=== PATIENT | male | born 1955 | race Two or more races ===

== ENCOUNTER 2016-10-30 16:36 | Inpatient (IN) | payer OTHER ==
[~2016-10-30] VITALS: Ht 177.8 cm; Wt 97.3 kg
[~2016-10-30 16:36] MED LIST: ATO40T PO; INSUINJ2 SC; LISI-275 PO; TERA1CAP33 PO
[2016-10-30] MEDS ORDERED: SODIUM CHLORIDE 0.9% 1,000 ML IVB ONE (18:18)
[2016-10-30] MEDS ORDERED: ONDANSETRON HCL 4 MG/2 ML VIAL IV ONE (18:30)
[2016-10-30 18:32] LABS: Basophils # (auto) 0 uL; Basophils % (auto) 0.3 % (0.0-2.0); Eosinophils # (auto) 0 uL; Hematocrit 40.8 % (41.0-53.0); Hemoglobin 13.5 g/dL (13.5-17.5); Lymphocytes # (auto) 0.9 uL; Lymphocytes % (auto) 6.2 % (10.0-50.0); Mean Corpuscular Hemoglobin 27.6 pg (28.0-32.0); Mean Corpuscular Hgb Conc. 33.1 g/dL (32.0-36.0); Mean Corpuscular Volume 83.4 fL (80.0-100.0); Mean Platelet Volume 10.7 fL (7.4-10.4); Monocytes # (auto) 0.6 uL; Monocytes % (auto) 4.1 % (0.0-12.0); Neutrophils # (auto) 12.8 uL; Neutrophils % (auto) 89.4 % (37.0-80.0); Platelet Count (auto) 305 10^3/uL (140-450); Red Cell Distribution Width 13.3 % (11.6-16.0); White Blood Cell 14.3 10^3/uL (4.4-10.8)
[2016-10-30 18:49] LABS: INR 1.04 (0.9-1.15); Partial Thromboplastin Time 26.2 sec (22.64-33.71); Prothrombin Time 10.7 sec (9.37-12.3)
[2016-10-30 18:53] LABS: Albumin 3.5 g/dL (3.4-5.0); BUN/Creatinine Ratio 14.1; Calcium 9.1 mg/dL (8.5-10.1); Magnesium 2.5 mg/dL (1.6-2.6); Potassium 5.1 mmol/L (3.5-5.1)
[2016-10-30 18:57] LABS: Bilirubin, Total 0.6 mg/dL (0.2-1.0); Total Protein 8.4 g/dL (6.4-8.2)
[2016-10-30] MEDS ORDERED: InsuLIN R (HUMAN) 100 UNITS in SODIUM CHL 0.9% 99 ML IV SCH (20:04)
[2016-10-30] MEDS ORDERED: DEXTROSE (50%) 50ML SYRG IV PRN (20:15)
[2016-10-30] MEDS ORDERED: SODIUM CHLORIDE 0.9% 1,000 ML IV ONE (20:15)
[2016-10-30] MEDS: ACCU-CHEK COMFORT CURVE STRIP VI SCH ×3 (21:15→23:22)
[2016-10-30] MEDS: InsuLIN R (HUMAN) 100 UNITS in SODIUM CHL 0.9% 99 ML IV SCH (21:20)
[2016-10-30] MEDS: SODIUM CHLORIDE 0.9% 1,000 ML IV SCH (21:55)
[2016-10-30] MEDS ORDERED: cefTRIAXone 1GM/50ML D5W 50 ML IV ONE (22:00)
[2016-10-30] MEDS ORDERED: MORPHINE SULFATE 4 MG/ML SYRG IV PRN (22:00)
[2016-10-30] MEDS ORDERED: NITROGLYCERIN 0.4 MG SL TAB SL PRN (22:00)
[2016-10-30] MEDS ORDERED: LACTULOSE 20Gm/30ML SOLN PO PRN (22:00)
[2016-10-31] VITALS (47 sets, daily range): BP systolic 109–180; BP diastolic 63–107
[2016-10-31] MEDS: ACCU-CHEK COMFORT CURVE STRIP VI SCH ×24 (00:43→23:02)
[2016-10-31] MEDS: ATORVASTATIN 20 MG TAB PO SCH ×2 (00:44→22:06)
[2016-10-31] MEDS: TERAZOSIN HCL 1 MG CAP PO SCH ×2 (00:44→22:06)
[2016-10-31] MEDS: ENOXAPARIN SOD 30 MG/0.3 ML SYRINGE SC SCH ×2 (00:45→19:34)
[2016-10-31] MEDS: ONDANSETRON HCL 4 MG/2 ML VIAL IV PRN ×2 (01:40→10:17)
[2016-10-31] MEDS: MORPHINE SULF INJ 2 MG/ML SYRINGE 1ML IV PRN ×2 (01:45→10:17)
[2016-10-31] MEDS ORDERED: SODIUM CHLORIDE 0.9% 1,000 ML IV SCH (02:04)
[2016-10-31] MEDS: SODIUM CHLORIDE 0.9% 1,000 ML IV SCH ×4 (03:00→17:55)
[2016-10-31 03:54] LABS: Basophils # (auto) 0 uL; Basophils % (auto) 0.3 % (0.0-2.0); Eosinophils # (auto) 0 uL; Eosinophils % (auto) 0.2 % (0.0-7.0); Hematocrit 38.8 % (41.0-53.0); Hemoglobin 12.9 g/dL (13.5-17.5); Lymphocytes # (auto) 1.4 uL; Lymphocytes % (auto) 10.4 % (10.0-50.0); Mean Corpuscular Hemoglobin 27.3 pg (28.0-32.0); Mean Corpuscular Hgb Conc. 33.4 g/dL (32.0-36.0); Mean Corpuscular Volume 81.8 fL (80.0-100.0); Mean Platelet Volume 10.2 fL (7.4-10.4); Monocytes # (auto) 0.9 uL; Monocytes % (auto) 6.7 % (0.0-12.0); Neutrophils % (auto) 82.4 % (37.0-80.0); Platelet Count (auto) 315 10^3/uL (140-450); Red Cell Distribution Width 12.7 % (11.6-16.0); White Blood Cell 13.3 10^3/uL (4.4-10.8)
[2016-10-31 04:14] LABS: Albumin 3.3 g/dL (3.4-5.0); BUN/Creatinine Ratio 15.7; Bilirubin, Total 0.3 mg/dL (0.2-1.0); Potassium 3.7 mmol/L (3.5-5.1); Total Protein 7.7 g/dL (6.4-8.2)
[2016-10-31 08:53] LABS: Urine Bilirubin Negative (Negative); Urine Blood TRACE /uL (Negative); Urine Color Yellow (Yellow); Urine Ketone Negative (Negative); Urine Nitrite Negative (Negative); Urine RBC 4 /hpf (0 - 3); Urine Squamous Epithelial Cell FEW /hpf (<5); Urine Urobilinogen Normal (Negative); Urine pH 5.5 (5.0-8.0)
[2016-10-31 08:54] LABS: Urine Glucose 4+ mg/dL (Normal)
[2016-10-31] MEDS: cefTRIAXone 1GM/50ML D5W 50 ML IV SCH (08:59)
[2016-10-31] MEDS: InsuLIN R (HUMAN) 100 UNITS in SODIUM CHL 0.9% 99 ML IV SCH (09:08)
[2016-10-31] MEDS ORDERED: LISINOPRIL 5 MG TAB PO SCH (10:00)
[2016-10-31] MEDS: PANTOPRAZOLE SODIUM 40 MG/10 ML VIAL IV SCH (10:10)
[2016-10-31 14:12] LABS: BUN/Creatinine Ratio 14.3; Calcium 8.2 mg/dL (8.5-10.1); Potassium 3.8 mmol/L (3.5-5.1)
[2016-10-31 18:10] LABS: BUN/Creatinine Ratio 14.4; Potassium 3.9 mmol/L (3.5-5.1)
[2016-10-31] MEDS ORDERED: hydrALAZINE HCL 20 MG/ML VL IV PRN (19:00)
[2016-11-01] VITALS (18 sets, daily range): BP systolic 120–178; BP diastolic 59–119
[2016-11-01] MEDS: ACCU-CHEK COMFORT CURVE STRIP VI SCH ×11 (00:06→20:19)
[2016-11-01] MEDS: SODIUM CHLORIDE 0.9% 1,000 ML IV SCH ×4 (00:53→22:11)
[2016-11-01 03:50] LABS: Basophils # (auto) 0 uL; Basophils % (auto) 0.4 % (0.0-2.0); Eosinophils # (auto) 0.1 uL; Eosinophils % (auto) 0.8 % (0.0-7.0); Hematocrit 31.1 % (41.0-53.0); Hemoglobin 10.4 g/dL (13.5-17.5); Lymphocytes # (auto) 1.4 uL; Lymphocytes % (auto) 17.3 % (10.0-50.0); Mean Corpuscular Hemoglobin 27.5 pg (28.0-32.0); Mean Corpuscular Hgb Conc. 33.3 g/dL (32.0-36.0); Mean Corpuscular Volume 82.6 fL (80.0-100.0); Mean Platelet Volume 9.9 fL (7.4-10.4); Monocytes # (auto) 0.5 uL; Monocytes % (auto) 6.9 % (0.0-12.0); Neutrophils # (auto) 5.8 uL; Neutrophils % (auto) 74.6 % (37.0-80.0); Platelet Count (auto) 215 10^3/uL (140-450); Red Cell Distribution Width 13.1 % (11.6-16.0); White Blood Cell 7.8 10^3/uL (4.4-10.8)
[2016-11-01 04:12] LABS: BUN/Creatinine Ratio 15.7; Calcium 8.3 mg/dL (8.5-10.1); Magnesium 2.1 mg/dL (1.6-2.6); Phosphorus 4.5 mg/dL (2.6-4.90); Uric Acid 7.7 mg/dL (3.5-7.2)
[2016-11-01] MEDS ORDERED: DEXTROSE (50%) 50ML SYRG IV PRN ×2 (06:45→18:30)
[2016-11-01] MEDS: InsuLIN REG 1unit/0.01ml Soln (100units/ml) SC SCH ×4 (07:00→20:22)
[2016-11-01] MEDS: cefTRIAXone 1GM/50ML D5W 50 ML IV SCH (08:58)
[2016-11-01] MEDS: PANTOPRAZOLE SODIUM 40 MG/10 ML VIAL IV SCH (09:24)
[2016-11-01] MEDS ORDERED: FLUCONAZOLE 100 MG TAB PO ONE (12:45)
[2016-11-01] MEDS: ENOXAPARIN SOD 30 MG/0.3 ML SYRINGE SC SCH (19:54)
[2016-11-01] MEDS ORDERED: InsuLIN REG 1unit/0.01ml Soln (100units/ml) SC SCH (22:00)
[2016-11-01] MEDS: TERAZOSIN HCL 1 MG CAP PO SCH (22:10)
[2016-11-01] MEDS: ATORVASTATIN 20 MG TAB PO SCH (22:10)
[2016-11-01] MEDS: INSULIN DETEMIR(LEVEMIR) 1unit/0.01ml Soln (100units/ml) SC SCH (22:42)
[2016-11-02] MEDS: InsuLIN REG 1unit/0.01ml Soln (100units/ml) SC SCH ×5 (00:06→16:00)
[2016-11-02] MEDS: ACCU-CHEK COMFORT CURVE STRIP VI SCH ×5 (00:07→16:00)
[2016-11-02] MEDS: SODIUM CHLORIDE 0.9% 1,000 ML IV SCH ×3 (03:52→16:35)
[2016-11-02 05:00] VITALS: BP 168/88
[2016-11-02 06:04] LABS: Basophils # (auto) 0 uL; Basophils % (auto) 0.4 % (0.0-2.0); Eosinophils # (auto) 0.1 uL; Eosinophils % (auto) 1.7 % (0.0-7.0); Hematocrit 29.7 % (41.0-53.0); Hemoglobin 9.9 g/dL (13.5-17.5); Lymphocytes # (auto) 1.1 uL; Lymphocytes % (auto) 15.8 % (10.0-50.0); Mean Corpuscular Hemoglobin 27.7 pg (28.0-32.0); Mean Corpuscular Hgb Conc. 33.2 g/dL (32.0-36.0); Mean Corpuscular Volume 83.3 fL (80.0-100.0); Mean Platelet Volume 10.1 fL (7.4-10.4); Monocytes # (auto) 0.5 uL; Monocytes % (auto) 6.9 % (0.0-12.0); Neutrophils % (auto) 75.2 % (37.0-80.0); Platelet Count (auto) 207 10^3/uL (140-450); Red Cell Distribution Width 13.6 % (11.6-16.0); White Blood Cell 6.7 10^3/uL (4.4-10.8)
[2016-11-02 06:22] LABS: Calcium 7.8 mg/dL (8.5-10.1)
[2016-11-02 06:23] LABS: BUN/Creatinine Ratio 15.2
[2016-11-02] MEDS: PANTOPRAZOLE SODIUM 40 MG/10 ML VIAL IV SCH (08:58)
[2016-11-02] MEDS: INSULIN DETEMIR(LEVEMIR) 1unit/0.01ml Soln (100units/ml) SC SCH (09:04)
[2016-11-02 09:05] VITALS: BP 155/71
[2016-11-02] MEDS ORDERED: FLUCONAZOLE 100 MG TAB PO SCH (10:00)
[2016-11-02 13:52] VITALS: BP 156/88
[2016-11-02] MEDS ORDERED: LISI2.5T47 PO (15:43)
[2016-11-02 17:10] VITALS: BP 154/70
== END 2016-11-02 18:22 | disposition left against medical advice (07) | DRG 682 ==
LOC: ER 17:04 → TELE 17:05 → ICU WEST 23:46 → TELE-WESTW 11-01 10:00
PROVIDERS: ADMIT Family Medicine; ATTEND Internal Medicine
DX: N17.0 Acute kidney failure with tubular necrosis (principal); E13.10 Other specified diabetes mellitus with ketoacidosis without coma; E87.1 Hypo-osmolality and hyponatremia; B37.49 Other urogenital candidiasis; N18.6 End stage renal disease; N13.30 Unspecified hydronephrosis; N18.4 Chronic kidney disease, stage 4 (severe); E86.0 Dehydration; D72.829 Elevated white blood cell count, unspecified; F41.9 Anxiety disorder, unspecified; E11.22 Type 2 diabetes mellitus with diabetic chronic kidney disease; K80.20 Calculus of gallbladder without cholecystitis without obstruction; N40.0 Benign prostatic hyperplasia without lower urinary tract symptoms; I12.9 Hypertensive chronic kidney disease with stage 1 through stage 4 chronic kidney disease, or unspecified chronic kidney disease; E78.5 Hyperlipidemia, unspecified; E87.5 Hyperkalemia; N28.1 Cyst of kidney, acquired; D64.9 Anemia, unspecified; Z83.3 Family history of diabetes mellitus; Z79.4 Long term (current) use of insulin
CPT/HCPCS: 36415; 36600; 71010; 74176; 80048; 80053; 80061; 81001; 82010; 82150; 82550; 82570; 82805; 82962; 83036; 83540; 83550; 83605; 83690; 83735; 84100; 84156; 84300; 84443; 84550; 85025; 85049; 85610; 85730; 87040; 87081; 87086; 87340; 93005; 96374; C9113; J0696; J1815; J2405

== ENCOUNTER 2021-09-06 16:19 | Inpatient (IN) | payer OTHER ==
[~2021-09-06] VITALS: Ht 177.8 cm; Wt 97.4 kg
[~2021-09-06 16:19] MED LIST changes: -INSUINJ2 SC; -LISI-275 PO; +LISI2.5T47 PO
[2021-09-06] MEDS ORDERED: PIPERACILLIN-TAZOB 3.375GM 100 ML IV ONE (17:00)
[2021-09-06] MEDS ORDERED: ONDANSETRON HCL 4 MG/2 ML VIAL IV ONE (17:00)
[2021-09-06 18:33] LABS: Basophils # (auto) 0.1 10 ^3/uL (0-0.2); Basophils % (auto) 1.5 % (0.0-2.0); Eosinophils # (auto) 0.1 10 ^3/uL (0-0.8); Eosinophils % (auto) 2.2 % (0.0-7.0); Hematocrit 34.9 % (41.0-53.0); Hemoglobin 11.2 g/dL (13.5-17.5); Lymphocytes # (auto) 0.9 10 ^3/uL (0.4-5.4); Lymphocytes % (auto) 16.8 % (10.0-50.0); Mean Corpuscular Hemoglobin 29.2 pg (28.0-32.0); Mean Corpuscular Hgb Conc. 32.1 g/dL (32.0-36.0); Mean Corpuscular Volume 90.9 fL (80.0-100.0); Monocytes # (auto) 0.4 10 ^3/uL (0-1.3); Monocytes % (auto) 6.7 % (0.0-12.0); Neutrophils # (auto) 3.9 10 ^3/uL (1.6-8.6); Neutrophils % (auto) 72.8 % (37.0-80.0); Red Blood Cells 3.84 10^6/uL (4.5-5.90); Red Cell Distribution Width 16.4 % (11.8-14.3); White Blood Cell 5.3 10^3/uL (4.4-10.8)
[2021-09-06 18:55] LABS: Calcium 9.6 mg/dL (8.5-10.1)
[2021-09-06 18:58] LABS: BUN/Creatinine Ratio 10.4; Bilirubin, Total 0.8 mg/dL (0.2-1.0); Total Protein 8.1 g/dL (6.4-8.2)
[2021-09-06 19:05] LABS: Potassium 7.4 mmol/L (3.5-5.1)
[2021-09-06] MEDS ORDERED: InsuLIN REG 1unit/0.01ml Soln (100units/ml) IV ONE (20:30)
[2021-09-06] MEDS ORDERED: ALBUTEROL SULF 2.5 MG/0.5ML(0.5%) NEB SOLN NEB ONE (20:30)
[2021-09-06] MEDS ORDERED: DEXTROSE (50%) 50ML SYRG IV ONE (20:30)
[2021-09-06] MEDS ORDERED: SODIUM BICARBONATE 8.4% INJ 50ML SYRINGE IV ONE (20:30)
[2021-09-06] MEDS ORDERED: CALCIUM GLUC 1,000mg/50ml-NS 50 ML IV ONE (20:30)
[2021-09-06] MEDS ORDERED: ALBUTEROL SULF 2.5 MG/0.5ML(0.5%) NEB SOLN NEB PRN (22:45)
[2021-09-06] MEDS ORDERED: MORPHINE SULFATE INJECTION 2 MG/ML SYRG IV PRN (22:45)
[2021-09-06] MEDS ORDERED: HYDROcodone-ACET 5/325MG TAB PO PRN (22:45)
[2021-09-06] MEDS ORDERED: NITROGLYCERIN 0.4 MG SL TAB SL PRN (22:45)
[2021-09-06] MEDS ORDERED: hydrALAZINE HCL 20 MG/ML VL IV PRN (22:45)
[2021-09-06] MEDS ORDERED: ACETAMINOPHEN 325 MG TAB PO PRN (22:45)
[2021-09-06] MEDS ORDERED: DOCUSATE SOD 100 MG CAP PO PRN (22:45)
[2021-09-06] MEDS ORDERED: IPRATROPIUM BROM 0.5 MG/2.5ML INH SOL NEB PRN (22:45)
[2021-09-06] MEDS ORDERED: DEXTROSE (50%) 50ML SYRG IV PRN (22:45)
[2021-09-07] VITALS (8 sets, daily range): BP systolic 133–187; BP diastolic 66–93
[2021-09-07 02:25] LABS: Urine Bacteria FEW /hpf (None Seen); Urine Blood 1+ /uL (Negative); Urine Specific Gravity 1.011 (1.001-1.035); Urine WBC 21 /hpf (0 - 3)
[2021-09-07 06:07] LABS: Basophils # (auto) 0.1 10 ^3/uL (0-0.2); Basophils % (auto) 1.1 % (0.0-2.0); Eosinophils # (auto) 0.1 10 ^3/uL (0-0.8); Eosinophils % (auto) 1.5 % (0.0-7.0); Hematocrit 30.5 % (41.0-53.0); Hemoglobin 10.1 g/dL (13.5-17.5); Lymphocytes # (auto) 0.8 10 ^3/uL (0.4-5.4); Lymphocytes % (auto) 14.7 % (10.0-50.0); Mean Corpuscular Hemoglobin 29.8 pg (28.0-32.0); Mean Corpuscular Hgb Conc. 33.1 g/dL (32.0-36.0); Mean Corpuscular Volume 90.2 fL (80.0-100.0); Monocytes # (auto) 0.4 10 ^3/uL (0-1.3); Monocytes % (auto) 6.3 % (0.0-12.0); Neutrophils # (auto) 4.2 10 ^3/uL (1.6-8.6); Neutrophils % (auto) 76.4 % (37.0-80.0); Red Blood Cells 3.38 10^6/uL (4.5-5.90); White Blood Cell 5.5 10^3/uL (4.4-10.8)
[2021-09-07] MEDS: SODIUM CHLOR 0.9% PF (SALINE LOCK) 10ML VIAL/SYR IV SCH ×3 (06:33→22:00)
[2021-09-07] MEDS: InsuLIN REG 1unit/0.01ml Soln (100units/ml) SC SCH ×4 (06:34→22:00)
[2021-09-07] MEDS: ACCU-CHEK COMFORT CURVE STRIP VI SCH ×4 (06:34→22:38)
[2021-09-07 06:39] LABS: Albumin 2.7 g/dL (3.4-5.0); BUN/Creatinine Ratio 10.8; Bilirubin, Total 0.6 mg/dL (0.2-1.0); Calcium 9.3 mg/dL (8.5-10.1); Total Protein 7.4 g/dL (6.4-8.2)
[2021-09-07 06:45] LABS: Potassium 6.8 mmol/L (3.5-5.1)
[2021-09-07] MEDS: ASCORBIC ACID 500 MG TAB PO SCH ×2 (09:34→22:00)
[2021-09-07] MEDS: CARVEDILOL 12.5 MG TAB PO SCH ×2 (09:34→22:00)
[2021-09-07] MEDS: ZINC SULFATE 220mg CAP or TAB PO SCH (09:34)
[2021-09-07] MEDS: SEVELAMER 800 MG TAB PO SCH ×3 (09:35→17:59)
[2021-09-07] MEDS: ASPirin 81 mg TAB PO SCH (09:35)
[2021-09-07] MEDS: B-COMPLEX W/ C & FOLIC ACID(NEPHROVITE TAB) PO SCH (09:35)
[2021-09-07] MEDS: HEPARIN SODIUM (PORCINE) 5000 UNITS/ML 1ML VIAL SC SCH ×2 (09:36→22:22)
[2021-09-07] MEDS: FAMOTIDINE (10MG/ML) 2ML VL IV SCH (09:37)
[2021-09-07] MEDS: cefTRIAXone 1GM/50ML D5W 50 ML IV SCH (09:37)
[2021-09-07] MEDS ORDERED: SODIUM CHL 0.9% 1000 ML BAG XX ONE (09:45)
[2021-09-07] MEDS: SODIUM BICARBONATE 8.4% INJ 50ML SYRINGE IV ONE (09:45)
[2021-09-07] MEDS ORDERED: SODIUM ZIRCONIUM CYCL 10 GM PAK PO ONE (09:45)
[2021-09-07] MEDS ORDERED: FUROSEMIDE 40 MG/4 ML VIAL IV SCH (10:00)
[2021-09-07 10:39] LABS: % Iron Saturation 47.7 % (20-55)
[2021-09-07 12:16] LABS: INR 1.32 (0.9-1.15)
[2021-09-07] MEDS ORDERED: SODIUM ZIRCONIUM CYCL 10 GM PAK PO SCH (14:00)
[2021-09-07] MEDS: ATORVASTATIN 20 MG TAB PO SCH (22:39)
[2021-09-08 05:00] VITALS: BP 126/74
[2021-09-08] MEDS: SODIUM CHLOR 0.9% PF (SALINE LOCK) 10ML VIAL/SYR IV SCH ×3 (05:44→22:07)
[2021-09-08 06:02] LABS: Basophils # (auto) 0 10 ^3/uL (0-0.2); Basophils % (auto) 0.9 % (0.0-2.0); Eosinophils # (auto) 0.1 10 ^3/uL (0-0.8); Eosinophils % (auto) 1.8 % (0.0-7.0); Hematocrit 30.1 % (41.0-53.0); Hemoglobin 10.1 g/dL (13.5-17.5); Lymphocytes # (auto) 0.9 10 ^3/uL (0.4-5.4); Lymphocytes % (auto) 16.2 % (10.0-50.0); Mean Corpuscular Hemoglobin 30.2 pg (28.0-32.0); Mean Corpuscular Hgb Conc. 33.5 g/dL (32.0-36.0); Monocytes # (auto) 0.4 10 ^3/uL (0-1.3); Monocytes % (auto) 7.2 % (0.0-12.0); Neutrophils # (auto) 4.1 10 ^3/uL (1.6-8.6); Neutrophils % (auto) 73.9 % (37.0-80.0); Red Blood Cells 3.35 10^6/uL (4.5-5.90); White Blood Cell 5.6 10^3/uL (4.4-10.8)
[2021-09-08 06:24] LABS: Calcium 8.6 mg/dL (8.5-10.1)
[2021-09-08 06:28] LABS: BUN/Creatinine Ratio 8.8
[2021-09-08 06:34] LABS: Potassium 6.3 mmol/L (3.5-5.1)
[2021-09-08] MEDS: ACCU-CHEK COMFORT CURVE STRIP VI SCH ×4 (06:38→22:00)
[2021-09-08] MEDS: InsuLIN REG 1unit/0.01ml Soln (100units/ml) SC SCH ×4 (06:41→22:15)
[2021-09-08 08:00] VITALS: BP 135/67
[2021-09-08] MEDS ORDERED: SODIUM ZIRCONIUM CYCL 10 GM PAK PO ONE (08:15)
[2021-09-08] MEDS ORDERED: SODIUM BICARBONATE 8.4% INJ 50ML SYRINGE IV ONE (08:15)
[2021-09-08] MEDS ORDERED: CALCIUM GLUC 1,000mg/50ml-NS 50 ML IV ONE (08:15)
[2021-09-08] MEDS: SEVELAMER 800 MG TAB PO SCH ×3 (08:33→18:06)
[2021-09-08] MEDS: cefTRIAXone 1GM/50ML D5W 50 ML IV SCH (08:51)
[2021-09-08 09:00] VITALS: BP 135/67
[2021-09-08] MEDS: ASPirin 81 mg TAB PO SCH (10:03)
[2021-09-08] MEDS: ASCORBIC ACID 500 MG TAB PO SCH ×2 (10:03→22:01)
[2021-09-08] MEDS: ZINC SULFATE 220mg CAP or TAB PO SCH (10:03)
[2021-09-08] MEDS: B-COMPLEX W/ C & FOLIC ACID(NEPHROVITE TAB) PO SCH (10:03)
[2021-09-08] MEDS: CARVEDILOL 12.5 MG TAB PO SCH ×2 (10:04→22:02)
[2021-09-08] MEDS: FUROSEMIDE 40 MG/4 ML VIAL IV SCH (10:05)
[2021-09-08] MEDS: HEPARIN SODIUM (PORCINE) 5000 UNITS/ML 1ML VIAL SC SCH ×2 (10:07→22:00)
[2021-09-08 13:00] VITALS: BP 140/72
[2021-09-08 14:01] LABS: Magnesium 2.1 mg/dL (1.6-2.6); Phosphorus 7.2 mg/dL (2.5-4.90)
[2021-09-08] MEDS: SODIUM ZIRCONIUM CYCL 10 GM PAK PO SCH ×2 (14:57→22:02)
[2021-09-08 17:00] VITALS: BP 143/58
[2021-09-08 20:00] VITALS: BP 135/75
[2021-09-08] MEDS: ATORVASTATIN 20 MG TAB PO SCH (22:01)
[2021-09-08] MEDS: ONDANSETRON HCL 4 MG/2 ML VIAL IV PRN (22:25)
[2021-09-09 05:00] VITALS: BP 150/78
[2021-09-09 05:52] LABS: Basophils # (auto) 0.1 10 ^3/uL (0-0.2); Basophils % (auto) 1.2 % (0.0-2.0); Eosinophils # (auto) 0.1 10 ^3/uL (0-0.8); Eosinophils % (auto) 2.3 % (0.0-7.0); Hematocrit 30.3 % (41.0-53.0); Hemoglobin 10.2 g/dL (13.5-17.5); Mean Corpuscular Hemoglobin 30.2 pg (28.0-32.0); Mean Corpuscular Hgb Conc. 33.5 g/dL (32.0-36.0); Monocytes # (auto) 0.5 10 ^3/uL (0-1.3); Monocytes % (auto) 7.9 % (0.0-12.0); Neutrophils # (auto) 4.4 10 ^3/uL (1.6-8.6); Neutrophils % (auto) 71.6 % (37.0-80.0); Red Blood Cells 3.37 10^6/uL (4.5-5.90); Red Cell Distribution Width 16.3 % (11.8-14.3); White Blood Cell 6.1 10^3/uL (4.4-10.8)
[2021-09-09] MEDS: SODIUM ZIRCONIUM CYCL 10 GM PAK PO SCH ×3 (06:00→22:32)
[2021-09-09] MEDS: SODIUM CHLOR 0.9% PF (SALINE LOCK) 10ML VIAL/SYR IV SCH ×3 (06:00→22:33)
[2021-09-09] MEDS: ACCU-CHEK COMFORT CURVE STRIP VI SCH ×4 (06:12→22:34)
[2021-09-09 06:37] LABS: Calcium 8.6 mg/dL (8.5-10.1)
[2021-09-09 06:39] LABS: BUN/Creatinine Ratio 8.6
[2021-09-09 06:47] LABS: Potassium 6.6 mmol/L (3.5-5.1)
[2021-09-09] MEDS: cefTRIAXone 1GM/50ML D5W 50 ML IV SCH ×2 (07:58→09:57)
[2021-09-09] MEDS: FAMOTIDINE (10MG/ML) 2ML VL IV SCH ×2 (07:58→09:57)
[2021-09-09] MEDS: SEVELAMER 800 MG TAB PO SCH ×4 (07:58→17:05)
[2021-09-09] MEDS: ASCORBIC ACID 500 MG TAB PO SCH ×2 (07:59→09:59)
[2021-09-09] MEDS: ZINC SULFATE 220mg CAP or TAB PO SCH ×2 (07:59→09:58)
[2021-09-09] MEDS: ASPirin 81 mg TAB PO SCH ×2 (07:59→09:57)
[2021-09-09] MEDS: CARVEDILOL 12.5 MG TAB PO SCH ×3 (07:59→22:31)
[2021-09-09] MEDS: B-COMPLEX W/ C & FOLIC ACID(NEPHROVITE TAB) PO SCH ×2 (07:59→09:59)
[2021-09-09 08:00] VITALS: BP 133/74
[2021-09-09] MEDS: HEPARIN SODIUM (PORCINE) 5000 UNITS/ML 1ML VIAL SC SCH ×2 (08:00→22:36)
[2021-09-09] MEDS: FUROSEMIDE 40 MG/4 ML VIAL IV SCH (08:00)
[2021-09-09 09:00] VITALS: BP 133/74
[2021-09-09] MEDS: InsuLIN REG 1unit/0.01ml Soln (100units/ml) SC SCH ×3 (11:15→22:00)
[2021-09-09 13:00] VITALS: BP 148/76
[2021-09-09 16:47] VITALS: BP 130/63
[2021-09-09] MEDS: ATORVASTATIN 20 MG TAB PO SCH (22:31)
[2021-09-09 23:48] VITALS: BP 129/83
[2021-09-10 02:40] VITALS: BP 129/83
[2021-09-10 05:00] VITALS: BP 122/68
[2021-09-10] MEDS: SODIUM CHLOR 0.9% PF (SALINE LOCK) 10ML VIAL/SYR IV SCH ×3 (05:46→21:37)
[2021-09-10] MEDS: SODIUM ZIRCONIUM CYCL 10 GM PAK PO SCH ×3 (05:52→21:38)
[2021-09-10] MEDS: InsuLIN REG 1unit/0.01ml Soln (100units/ml) SC SCH ×4 (07:00→21:38)
[2021-09-10] MEDS ORDERED: SODIUM CHL 0.9% 1000 ML BAG XX ONE (07:00)
[2021-09-10] MEDS: ACCU-CHEK COMFORT CURVE STRIP VI SCH ×4 (07:04→21:38)
[2021-09-10 07:35] LABS: Basophils # (auto) 0.1 10 ^3/uL (0-0.2); Basophils % (auto) 0.9 % (0.0-2.0); Eosinophils # (auto) 0.1 10 ^3/uL (0-0.8); Eosinophils % (auto) 2.3 % (0.0-7.0); Hematocrit 29.4 % (41.0-53.0); Hemoglobin 9.5 g/dL (13.5-17.5); Lymphocytes % (auto) 16.9 % (10.0-50.0); Mean Corpuscular Hemoglobin 29.4 pg (28.0-32.0); Mean Corpuscular Hgb Conc. 32.4 g/dL (32.0-36.0); Mean Corpuscular Volume 90.9 fL (80.0-100.0); Monocytes # (auto) 0.5 10 ^3/uL (0-1.3); Monocytes % (auto) 8.1 % (0.0-12.0); Neutrophils # (auto) 4.5 10 ^3/uL (1.6-8.6); Neutrophils % (auto) 71.8 % (37.0-80.0); Nucleated Red Blood Cells % 0.1 %; Red Blood Cells 3.23 10^6/uL (4.5-5.90); Red Cell Distribution Width 15.9 % (11.8-14.3); White Blood Cell 6.2 10^3/uL (4.4-10.8)
[2021-09-10 07:45] LABS: BUN/Creatinine Ratio 9.4; Calcium 8.8 mg/dL (8.5-10.1)
[2021-09-10] MEDS: SEVELAMER 800 MG TAB PO SCH ×3 (08:00→18:22)
[2021-09-10 08:06] LABS: Potassium 6.9 mmol/L (3.5-5.1)
[2021-09-10 09:00] VITALS: BP 128/71
[2021-09-10 09:29] LABS: INR 1.24 (0.9-1.15); Partial Thromboplastin Time 29.9 sec (23.6-33.0)
[2021-09-10] MEDS: SODIUM ZIRCONIUM CYCL 10 GM PAK PO ONE ×2 (09:45→10:29)
[2021-09-10] MEDS ORDERED: CALCIUM GLUC 1,000mg/50ml-NS 50 ML IV ONE (09:45)
[2021-09-10] MEDS: HEPARIN SODIUM (PORCINE) 5000 UNITS/ML 1ML VIAL SC SCH ×2 (10:00→21:38)
[2021-09-10] MEDS ORDERED: LIDOCAINE 2%HCL (LOCAL ANESTH.) INJ 10ml MDV IJ ONE (10:15)
[2021-09-10] MEDS: B-COMPLEX W/ C & FOLIC ACID(NEPHROVITE TAB) PO SCH (10:29)
[2021-09-10] MEDS: cefTRIAXone 1GM/50ML D5W 50 ML IV SCH (10:29)
[2021-09-10] MEDS: ASPirin 81 mg TAB PO SCH (10:29)
[2021-09-10] MEDS: CARVEDILOL 12.5 MG TAB PO SCH ×2 (10:30→21:37)
[2021-09-10] MEDS ORDERED: LIDOCAINE 2% (LOCAL ANESTH.) PF 5ml SDV IJ ONE (10:30)
[2021-09-10] MEDS: FUROSEMIDE 100 MG/10ML VIAL IV SCH ×2 (10:31→18:21)
[2021-09-10 13:00] VITALS: BP 144/75
[2021-09-10 14:04] LABS: Hepatitis A Ab IgM Negative
[2021-09-10 14:20] LABS: Hepatitis B Core IgM Negative
[2021-09-10 14:23] LABS: Hepatitis C Antibody Negative (Negative)
[2021-09-10 17:00] VITALS: BP 119/66
[2021-09-10] MEDS: ATORVASTATIN 20 MG TAB PO SCH (21:37)
[2021-09-10 22:00] VITALS: BP 138/74
[2021-09-11] VITALS (8 sets, daily range): BP systolic 94–143; BP diastolic 56–71
[2021-09-11] MEDS: FUROSEMIDE 100 MG/10ML VIAL IV SCH ×2 (05:33→18:00)
[2021-09-11] MEDS: SODIUM CHLOR 0.9% PF (SALINE LOCK) 10ML VIAL/SYR IV SCH ×3 (05:33→21:56)
[2021-09-11] MEDS: SODIUM ZIRCONIUM CYCL 10 GM PAK PO SCH ×3 (05:34→21:58)
[2021-09-11 05:38] LABS: Basophils # (auto) 0.1 10 ^3/uL (0-0.2); Eosinophils # (auto) 0.1 10 ^3/uL (0-0.8); Eosinophils % (auto) 1.9 % (0.0-7.0); Hematocrit 27.6 % (41.0-53.0); Mean Corpuscular Hemoglobin 29.4 pg (28.0-32.0); Mean Corpuscular Hgb Conc. 32.7 g/dL (32.0-36.0); Mean Corpuscular Volume 90.1 fL (80.0-100.0); Monocytes # (auto) 0.6 10 ^3/uL (0-1.3); Monocytes % (auto) 9.3 % (0.0-12.0); Neutrophils # (auto) 4.8 10 ^3/uL (1.6-8.6); Neutrophils % (auto) 72.8 % (37.0-80.0); Nucleated Red Blood Cells % 0.1 %; Red Blood Cells 3.06 10^6/uL (4.5-5.90); Red Cell Distribution Width 15.8 % (11.8-14.3); White Blood Cell 6.6 10^3/uL (4.4-10.8)
[2021-09-11 05:53] LABS: INR 1.23 (0.9-1.15); Partial Thromboplastin Time 29.3 sec (23.6-33.0)
[2021-09-11 05:58] LABS: BUN/Creatinine Ratio 10.1; Calcium 8.7 mg/dL (8.5-10.1)
[2021-09-11] MEDS: InsuLIN REG 1unit/0.01ml Soln (100units/ml) SC SCH ×4 (06:12→22:55)
[2021-09-11] MEDS: ACCU-CHEK COMFORT CURVE STRIP VI SCH ×4 (06:12→21:56)
[2021-09-11 06:42] LABS: Potassium 6.5 mmol/L (3.5-5.1)
[2021-09-11] MEDS: SEVELAMER 800 MG TAB PO SCH ×3 (08:00→18:50)
[2021-09-11] MEDS ORDERED: LIDOCAINE 2%HCL (LOCAL ANESTH.) INJ 20ML MDV ONE (09:14)
[2021-09-11] MEDS ORDERED: HEPARIN SODIUM (PORCINE) 5000 UNITS/ML 1ML VIAL ONE ×2 (09:27→18:40)
[2021-09-11] MEDS ORDERED: fentaNYL CITRATE 100 MCG/2 ML VL ONE (09:27)
[2021-09-11] MEDS ORDERED: MIDAZOLAM HCL 2MG/2ML 2ml VIAL (1mg/ml) ONE (09:28)
[2021-09-11] MEDS: CARVEDILOL 12.5 MG TAB PO SCH ×2 (12:30→21:53)
[2021-09-11] MEDS: B-COMPLEX W/ C & FOLIC ACID(NEPHROVITE TAB) PO SCH (12:30)
[2021-09-11] MEDS: HEPARIN SODIUM (PORCINE) 5000 UNITS/ML 1ML VIAL SC SCH ×2 (12:30→21:55)
[2021-09-11] MEDS: cefTRIAXone 1GM/50ML D5W 50 ML IV SCH (12:30)
[2021-09-11] MEDS: FAMOTIDINE (10MG/ML) 2ML VL IV SCH (12:30)
[2021-09-11] MEDS: ASPirin 81 mg TAB PO SCH (12:30)
[2021-09-11] MEDS: ATORVASTATIN 20 MG TAB PO SCH (21:53)
[2021-09-12] VITALS (7 sets, daily range): BP systolic 115–145; BP diastolic 61–77
[2021-09-12] MEDS: ACCU-CHEK COMFORT CURVE STRIP VI SCH ×5 (05:43→21:52)
[2021-09-12] MEDS: InsuLIN REG 1unit/0.01ml Soln (100units/ml) SC SCH ×4 (05:43→21:52)
[2021-09-12] MEDS: FUROSEMIDE 100 MG/10ML VIAL IV SCH ×2 (05:44→18:04)
[2021-09-12] MEDS: SODIUM ZIRCONIUM CYCL 10 GM PAK PO SCH (06:00)
[2021-09-12] MEDS: SODIUM CHLOR 0.9% PF (SALINE LOCK) 10ML VIAL/SYR IV SCH ×3 (06:22→21:59)
[2021-09-12] MEDS: SEVELAMER 800 MG TAB PO SCH ×3 (08:38→18:04)
[2021-09-12] MEDS: cefTRIAXone 1GM/50ML D5W 50 ML IV SCH (08:38)
[2021-09-12 09:21] LABS: Basophils # (auto) 0.1 10 ^3/uL (0-0.2); Basophils % (auto) 0.8 % (0.0-2.0); Eosinophils # (auto) 0.1 10 ^3/uL (0-0.8); Eosinophils % (auto) 1.5 % (0.0-7.0); Hematocrit 25.6 % (41.0-53.0); Hemoglobin 8.5 g/dL (13.5-17.5); Lymphocytes # (auto) 0.9 10 ^3/uL (0.4-5.4); Lymphocytes % (auto) 12.1 % (10.0-50.0); Mean Corpuscular Hemoglobin 30.1 pg (28.0-32.0); Mean Corpuscular Hgb Conc. 33.3 g/dL (32.0-36.0); Mean Corpuscular Volume 90.5 fL (80.0-100.0); Monocytes # (auto) 0.6 10 ^3/uL (0-1.3); Monocytes % (auto) 7.3 % (0.0-12.0); Neutrophils % (auto) 78.3 % (37.0-80.0); Nucleated Red Blood Cells % 0.1 %; Red Blood Cells 2.83 10^6/uL (4.5-5.90); Red Cell Distribution Width 15.9 % (11.8-14.3); White Blood Cell 7.6 10^3/uL (4.4-10.8)
[2021-09-12 09:35] LABS: Calcium 7.4 mg/dL (8.5-10.1)
[2021-09-12 09:37] LABS: BUN/Creatinine Ratio 9.7
[2021-09-12] MEDS: ASPirin 81 mg TAB PO SCH (10:00)
[2021-09-12] MEDS: CARVEDILOL 12.5 MG TAB PO SCH (10:00)
[2021-09-12] MEDS: HEPARIN SODIUM (PORCINE) 5000 UNITS/ML 1ML VIAL SC SCH ×2 (10:00→21:49)
[2021-09-12] MEDS: B-COMPLEX W/ C & FOLIC ACID(NEPHROVITE TAB) PO SCH (10:00)
[2021-09-12] MEDS ORDERED: SEVE800T8 PO (13:07)
[2021-09-12] MEDS ORDERED: FURO40TA4 PO (13:08)
[2021-09-12] MEDS ORDERED: AMOX500T86 PO (13:26)
[2021-09-12] MEDS ORDERED: ATOR20TA50 PO (13:26)
[2021-09-12] MEDS ORDERED: ASPI1CHW15 PO (13:26)
[2021-09-12] MEDS: ATORVASTATIN 20 MG TAB PO SCH (21:59)
[2021-09-13 05:18] VITALS: BP 92/45
[2021-09-13] MEDS: FUROSEMIDE 100 MG/10ML VIAL IV SCH ×2 (06:00→18:10)
[2021-09-13] MEDS: InsuLIN REG 1unit/0.01ml Soln (100units/ml) SC SCH ×4 (06:23→22:28)
[2021-09-13] MEDS: ACCU-CHEK COMFORT CURVE STRIP VI SCH ×4 (06:25→22:21)
[2021-09-13] MEDS: SODIUM CHLOR 0.9% PF (SALINE LOCK) 10ML VIAL/SYR IV SCH ×3 (06:25→22:21)
[2021-09-13] MEDS: SEVELAMER 800 MG TAB PO SCH ×3 (08:00→18:10)
[2021-09-13] MEDS: cefTRIAXone 1GM/50ML D5W 50 ML IV SCH (09:00)
[2021-09-13 09:21] VITALS: BP 95/51
[2021-09-13] MEDS: FAMOTIDINE (10MG/ML) 2ML VL IV SCH (10:00)
[2021-09-13] MEDS: ASPirin 81 mg TAB PO SCH (10:00)
[2021-09-13] MEDS: HEPARIN SODIUM (PORCINE) 5000 UNITS/ML 1ML VIAL SC SCH ×2 (10:00→22:36)
[2021-09-13] MEDS: B-COMPLEX W/ C & FOLIC ACID(NEPHROVITE TAB) PO SCH (10:00)
[2021-09-13 10:49] LABS: BUN/Creatinine Ratio 10.1; Calcium 8.3 mg/dL (8.5-10.1)
[2021-09-13 10:58] LABS: Basophils # (auto) 0 10 ^3/uL (0-0.2); Basophils % (auto) 0.5 % (0.0-2.0); Eosinophils # (auto) 0.1 10 ^3/uL (0-0.8); Eosinophils % (auto) 1.1 % (0.0-7.0); Hematocrit 24.2 % (41.0-53.0); Hemoglobin 8.1 g/dL (13.5-17.5); Lymphocytes # (auto) 0.8 10 ^3/uL (0.4-5.4); Lymphocytes % (auto) 9.6 % (10.0-50.0); Mean Corpuscular Hemoglobin 30.4 pg (28.0-32.0); Mean Corpuscular Hgb Conc. 33.4 g/dL (32.0-36.0); Monocytes # (auto) 0.7 10 ^3/uL (0-1.3); Neutrophils # (auto) 6.7 10 ^3/uL (1.6-8.6); Neutrophils % (auto) 80.8 % (37.0-80.0); Red Blood Cells 2.66 10^6/uL (4.5-5.90); Red Cell Distribution Width 15.4 % (11.8-14.3); White Blood Cell 8.3 10^3/uL (4.4-10.8)
[2021-09-13 13:00] VITALS: BP 117/57
[2021-09-13 15:45] LABS: Albumin 2.4 g/dL (3.4-5.0); Calcium 7.8 mg/dL (8.5-10.1); Potassium 4.1 mmol/L (3.5-5.1)
[2021-09-13 15:48] LABS: BUN/Creatinine Ratio 9.1; Bilirubin, Total 0.6 mg/dL (0.2-1.0); Total Protein 6.3 g/dL (6.4-8.2)
[2021-09-13 17:01] VITALS: BP 135/73
[2021-09-13 22:00] VITALS: BP 122/53
[2021-09-13] MEDS: ATORVASTATIN 20 MG TAB PO SCH (22:28)
[2021-09-14 05:09] VITALS: BP 100/58
[2021-09-14] MEDS: ACCU-CHEK COMFORT CURVE STRIP VI SCH ×4 (06:19→21:24)
[2021-09-14] MEDS: SODIUM CHLOR 0.9% PF (SALINE LOCK) 10ML VIAL/SYR IV SCH ×3 (06:19→21:25)
[2021-09-14] MEDS: InsuLIN REG 1unit/0.01ml Soln (100units/ml) SC SCH ×4 (06:42→21:24)
[2021-09-14] MEDS: FUROSEMIDE 100 MG/10ML VIAL IV SCH (06:45)
[2021-09-14 08:00] VITALS: BP 107/54
[2021-09-14 09:00] VITALS: BP 107/54
[2021-09-14] MEDS ORDERED: HEPARIN SODIUM (PORCINE) 5000 UNITS/ML 1ML VIAL ONE (09:40)
[2021-09-14] MEDS: cefTRIAXone 1GM/50ML D5W 50 ML IV SCH (09:46)
[2021-09-14] MEDS: B-COMPLEX W/ C & FOLIC ACID(NEPHROVITE TAB) PO SCH (09:47)
[2021-09-14] MEDS: ASPirin 81 mg TAB PO SCH (09:47)
[2021-09-14] MEDS: HEPARIN SODIUM (PORCINE) 5000 UNITS/ML 1ML VIAL SC SCH ×2 (09:52→21:25)
[2021-09-14] MEDS: SEVELAMER 800 MG TAB PO SCH ×3 (09:54→18:02)
[2021-09-14 12:13] LABS: Basophils # (auto) 0 10 ^3/uL (0-0.2); Basophils % (auto) 0.4 % (0.0-2.0); Eosinophils # (auto) 0.1 10 ^3/uL (0-0.8); Hematocrit 25.6 % (41.0-53.0); Hemoglobin 8.7 g/dL (13.5-17.5); Lymphocytes # (auto) 0.8 10 ^3/uL (0.4-5.4); Lymphocytes % (auto) 11.4 % (10.0-50.0); Mean Corpuscular Hemoglobin 30.7 pg (28.0-32.0); Mean Corpuscular Hgb Conc. 33.9 g/dL (32.0-36.0); Mean Corpuscular Volume 90.4 fL (80.0-100.0); Monocytes # (auto) 0.7 10 ^3/uL (0-1.3); Monocytes % (auto) 9.9 % (0.0-12.0); Neutrophils # (auto) 5.6 10 ^3/uL (1.6-8.6); Neutrophils % (auto) 77.3 % (37.0-80.0); Nucleated Red Blood Cells % 0.1 %; Red Blood Cells 2.83 10^6/uL (4.5-5.90); Red Cell Distribution Width 15.7 % (11.8-14.3); White Blood Cell 7.3 10^3/uL (4.4-10.8)
[2021-09-14 12:28] LABS: Calcium 8.1 mg/dL (8.5-10.1); Potassium 5.5 mmol/L (3.5-5.1)
[2021-09-14 12:30] LABS: BUN/Creatinine Ratio 9.3
[2021-09-14 13:00] VITALS: BP 115/62
[2021-09-14 17:00] VITALS: BP 120/61
[2021-09-14] MEDS: ATORVASTATIN 20 MG TAB PO SCH (21:25)
[2021-09-15] VITALS (7 sets, daily range): BP systolic 123–156; BP diastolic 44–73
[2021-09-15] MEDS: ACCU-CHEK COMFORT CURVE STRIP VI SCH ×4 (06:02→21:24)
[2021-09-15] MEDS: SODIUM CHLOR 0.9% PF (SALINE LOCK) 10ML VIAL/SYR IV SCH ×3 (06:02→21:22)
[2021-09-15] MEDS: InsuLIN REG 1unit/0.01ml Soln (100units/ml) SC SCH ×4 (06:21→21:35)
[2021-09-15 06:31] LABS: BUN/Creatinine Ratio 9.2; Calcium 8.4 mg/dL (8.5-10.1)
[2021-09-15 06:51] LABS: Potassium 5.9 mmol/L (3.5-5.1)
[2021-09-15] MEDS: SEVELAMER 800 MG TAB PO SCH ×3 (08:00→17:16)
[2021-09-15] MEDS ORDERED: SODIUM ZIRCONIUM CYCL 10 GM PAK PO ONE (09:45)
[2021-09-15] MEDS ORDERED: ALBUTEROL SULF 2.5 MG/0.5ML(0.5%) NEB SOLN NEB ONE (09:45)
[2021-09-15] MEDS: cefTRIAXone 1GM/50ML D5W 50 ML IV SCH (10:52)
[2021-09-15] MEDS: ASPirin 81 mg TAB PO SCH (10:52)
[2021-09-15] MEDS: B-COMPLEX W/ C & FOLIC ACID(NEPHROVITE TAB) PO SCH (10:52)
[2021-09-15] MEDS: FAMOTIDINE (10MG/ML) 2ML VL IV SCH (10:59)
[2021-09-15] MEDS: HEPARIN SODIUM (PORCINE) 5000 UNITS/ML 1ML VIAL SC SCH ×2 (11:12→21:23)
[2021-09-15] MEDS: ATORVASTATIN 20 MG TAB PO SCH (21:22)
[2021-09-15] MEDS: ONDANSETRON HCL 4 MG/2 ML VIAL IV PRN (21:36)
[2021-09-16 00:58] VITALS: BP 95/45
[2021-09-16 05:00] VITALS: BP 101/55
[2021-09-16] MEDS: SODIUM CHLOR 0.9% PF (SALINE LOCK) 10ML VIAL/SYR IV SCH ×3 (06:06→21:37)
[2021-09-16] MEDS: ACCU-CHEK COMFORT CURVE STRIP VI SCH ×4 (06:06→21:38)
[2021-09-16] MEDS: InsuLIN REG 1unit/0.01ml Soln (100units/ml) SC SCH ×4 (06:07→21:38)
[2021-09-16] MEDS: cefTRIAXone 1GM/50ML D5W 50 ML IV SCH (08:51)
[2021-09-16] MEDS: SEVELAMER 800 MG TAB PO SCH ×3 (08:52→18:09)
[2021-09-16 09:00] VITALS: BP 101/58
[2021-09-16] MEDS ORDERED: SODIUM ZIRCONIUM CYCL 10 GM PAK PO SCH (09:45)
[2021-09-16] MEDS: B-COMPLEX W/ C & FOLIC ACID(NEPHROVITE TAB) PO SCH (09:48)
[2021-09-16] MEDS: ASPirin 81 mg TAB PO SCH (09:49)
[2021-09-16] MEDS: HEPARIN SODIUM (PORCINE) 5000 UNITS/ML 1ML VIAL SC SCH ×2 (09:51→21:56)
[2021-09-16 10:33] LABS: BUN/Creatinine Ratio 8.5; Calcium 8.3 mg/dL (8.5-10.1); Magnesium 2.4 mg/dL (1.6-2.6); Potassium 5.4 mmol/L (3.5-5.1)
[2021-09-16] MEDS ORDERED: SODIUM ZIRCONIUM CYCL 10 GM PAK PO ONE (12:30)
[2021-09-16 13:00] VITALS: BP 116/71
[2021-09-16] MEDS: SODIUM ZIRCONIUM CYCL 10 GM PAK PO SCH ×2 (13:26→21:38)
[2021-09-16 17:00] VITALS: BP 107/72
[2021-09-16] MEDS: ATORVASTATIN 20 MG TAB PO SCH (21:38)
[2021-09-16 22:00] VITALS: BP 114/50
[2021-09-17 05:00] VITALS: BP 103/56
[2021-09-17] MEDS: SODIUM CHLOR 0.9% PF (SALINE LOCK) 10ML VIAL/SYR IV SCH ×3 (06:12→22:03)
[2021-09-17] MEDS: InsuLIN REG 1unit/0.01ml Soln (100units/ml) SC SCH ×4 (06:13→22:00)
[2021-09-17] MEDS: ACCU-CHEK COMFORT CURVE STRIP VI SCH ×4 (06:22→22:03)
[2021-09-17] MEDS: SODIUM ZIRCONIUM CYCL 10 GM PAK PO SCH ×2 (06:22→15:09)
[2021-09-17] MEDS ORDERED: SODIUM CHL 0.9% 1000 ML BAG XX ONE (07:00)
[2021-09-17 08:51] VITALS: BP 116/71
[2021-09-17] MEDS: SEVELAMER 800 MG TAB PO SCH ×5 (09:07→18:42)
[2021-09-17] MEDS: cefTRIAXone 1GM/50ML D5W 50 ML IV SCH (09:10)
[2021-09-17] MEDS ORDERED: APIX2.5T PO (10:21)
[2021-09-17] MEDS: ASPirin 81 mg TAB PO SCH (10:58)
[2021-09-17] MEDS: FAMOTIDINE (10MG/ML) 2ML VL IV SCH (10:58)
[2021-09-17] MEDS: B-COMPLEX W/ C & FOLIC ACID(NEPHROVITE TAB) PO SCH (10:58)
[2021-09-17] MEDS ORDERED: APIX5TAB PO (11:02)
[2021-09-17] MEDS: APIXABAN 5 MG TAB PO SCH ×3 (11:04→22:03)
[2021-09-17 13:07] LABS: Basophils # (auto) 0.1 10 ^3/uL (0-0.2); Eosinophils # (auto) 0.1 10 ^3/uL (0-0.8); Lymphocytes # (auto) 0.8 10 ^3/uL (0.4-5.4)
[2021-09-17 13:09] LABS: Hematocrit 23.5 % (41.0-53.0); Lymphocytes % (auto) 11.6 % (10.0-50.0); Mean Corpuscular Hemoglobin 30.5 pg (28.0-32.0); Mean Corpuscular Volume 89.7 fL (80.0-100.0); Monocytes # (auto) 0.8 10 ^3/uL (0-1.3); Monocytes % (auto) 12.3 % (0.0-12.0); Neutrophils % (auto) 74.1 % (37.0-80.0); Red Blood Cells 2.62 10^6/uL (4.5-5.90); Red Cell Distribution Width 15.7 % (11.8-14.3); White Blood Cell 6.7 10^3/uL (4.4-10.8)
[2021-09-17 13:33] LABS: Calcium 8.2 mg/dL (8.5-10.1); Potassium 5.2 mmol/L (3.5-5.1)
[2021-09-17 13:35] LABS: BUN/Creatinine Ratio 8.1
[2021-09-17 13:41] VITALS: BP 97/54
[2021-09-17 16:59] VITALS: BP 94/50
[2021-09-17] MEDS ORDERED: EPOETIN ALFA-EPBX 10,000 UNIT/1ML VIAL SC ONE (21:00)
[2021-09-17 22:00] VITALS: BP 122/48
[2021-09-17] MEDS: ATORVASTATIN 20 MG TAB PO SCH (22:03)
[2021-09-18] MEDS: SODIUM CHLOR 0.9% PF (SALINE LOCK) 10ML VIAL/SYR IV SCH ×3 (05:31→22:35)
[2021-09-18 05:36] VITALS: BP 152/80
[2021-09-18] MEDS: InsuLIN REG 1unit/0.01ml Soln (100units/ml) SC SCH ×4 (06:38→21:11)
[2021-09-18] MEDS: ACCU-CHEK COMFORT CURVE STRIP VI SCH ×4 (06:38→21:12)
[2021-09-18] MEDS: SEVELAMER 800 MG TAB PO SCH ×3 (08:13→18:00)
[2021-09-18 09:06] VITALS: BP 107/72
[2021-09-18] MEDS: cefTRIAXone 1GM/50ML D5W 50 ML IV SCH (09:11)
[2021-09-18] MEDS: ASPirin 81 mg TAB PO SCH (09:20)
[2021-09-18] MEDS: APIXABAN 5 MG TAB PO SCH ×2 (09:21→21:11)
[2021-09-18] MEDS: B-COMPLEX W/ C & FOLIC ACID(NEPHROVITE TAB) PO SCH (10:00)
[2021-09-18] MEDS: METOPROLOL TARTRATE 25 MG TAB PO SCH ×2 (10:17→21:11)
[2021-09-18 13:00] VITALS: BP 109/53
[2021-09-18 17:27] VITALS: BP 92/57
[2021-09-18] MEDS: ATORVASTATIN 20 MG TAB PO SCH (21:11)
[2021-09-18 22:00] VITALS: BP 115/78
[2021-09-19 05:00] VITALS: BP 147/85
[2021-09-19] MEDS: SODIUM CHLOR 0.9% PF (SALINE LOCK) 10ML VIAL/SYR IV SCH (05:27)
[2021-09-19] MEDS: InsuLIN REG 1unit/0.01ml Soln (100units/ml) SC SCH ×4 (06:31→21:02)
[2021-09-19] MEDS: ACCU-CHEK COMFORT CURVE STRIP VI SCH ×4 (06:31→21:03)
[2021-09-19] MEDS: SEVELAMER 800 MG TAB PO SCH ×3 (08:00→18:00)
[2021-09-19 09:00] VITALS: BP 134/66
[2021-09-19] MEDS: APIXABAN 5 MG TAB PO SCH ×2 (11:28→21:02)
[2021-09-19] MEDS: FAMOTIDINE 20 MG TAB PO SCH (11:28)
[2021-09-19] MEDS: B-COMPLEX W/ C & FOLIC ACID(NEPHROVITE TAB) PO SCH (11:29)
[2021-09-19] MEDS: METOPROLOL TARTRATE 25 MG TAB PO SCH ×2 (11:30→12:42)
[2021-09-19] MEDS: ASPirin 81 mg TAB PO SCH (11:31)
[2021-09-19 13:00] VITALS: BP 106/55
[2021-09-19 17:00] VITALS: BP 113/55
[2021-09-19] MEDS: ATORVASTATIN 20 MG TAB PO SCH (21:02)
[2021-09-19 22:00] VITALS: BP 133/61
[2021-09-20 05:38] VITALS: BP 137/50
[2021-09-20 05:52] LABS: Hemoglobin 8.9 g/dL (13.5-17.5); Mean Corpuscular Hemoglobin 30.4 pg (28.0-32.0); Mean Corpuscular Hgb Conc. 32.9 g/dL (32.0-36.0); Mean Corpuscular Volume 92.5 fL (80.0-100.0); Red Blood Cells 2.91 10^6/uL (4.5-5.90)
[2021-09-20 06:07] LABS: Calcium 8.3 mg/dL (8.5-10.1); Potassium 5.5 mmol/L (3.5-5.1)
[2021-09-20 06:08] LABS: Band Neutrophils % (manual) 0; Basophils % (manual) 0 (0.0-2.0); Blast Cells 0; Eosinophils % (manual) 0 (0-7); Metamyelocytes % 0; Myelocytes % 0; Promyelocytes % 0; Reactive Lymphocytes 0
[2021-09-20 06:12] LABS: BUN/Creatinine Ratio 7.3
[2021-09-20] MEDS: ACCU-CHEK COMFORT CURVE STRIP VI SCH ×4 (07:00→21:34)
[2021-09-20] MEDS: InsuLIN REG 1unit/0.01ml Soln (100units/ml) SC SCH ×4 (07:00→21:34)
[2021-09-20 07:06] LABS: Monocytes % (manual) 14 (0-12)
[2021-09-20 07:07] LABS: Lymphocytes % (manual) 21 (10.0-50.0)
[2021-09-20] MEDS: SEVELAMER 800 MG TAB PO SCH ×3 (07:53→18:00)
[2021-09-20 08:00] VITALS: BP 152/65
[2021-09-20 09:00] VITALS: BP 152/65
[2021-09-20] MEDS: ASPirin 81 mg TAB PO SCH (09:09)
[2021-09-20] MEDS: B-COMPLEX W/ C & FOLIC ACID(NEPHROVITE TAB) PO SCH (09:09)
[2021-09-20] MEDS: APIXABAN 5 MG TAB PO SCH ×2 (09:09→21:34)
[2021-09-20] MEDS: METOPROLOL TARTRATE 25 MG TAB PO SCH ×2 (09:09→21:34)
[2021-09-20 13:00] VITALS: BP 121/64
[2021-09-20 17:00] VITALS: BP 135/69
[2021-09-20 20:00] VITALS: BP 120/61
[2021-09-20] MEDS ORDERED: EPOETIN ALFA-EPBX 10,000 UNIT/1ML VIAL SC ONE (21:00)
[2021-09-20] MEDS: ATORVASTATIN 20 MG TAB PO SCH (21:33)
[2021-09-21 05:00] VITALS: BP 125/58
[2021-09-21 05:50] LABS: Hemoglobin 8.6 g/dL (13.5-17.5); Mean Corpuscular Hgb Conc. 33.2 g/dL (32.0-36.0); Mean Corpuscular Volume 90.3 fL (80.0-100.0); Red Blood Cells 2.88 10^6/uL (4.5-5.90); Red Cell Distribution Width 16.1 % (11.8-14.3); White Blood Cell 3.9 10^3/uL (4.4-10.8)
[2021-09-21 05:52] LABS: BUN/Creatinine Ratio 6.4; Calcium 8.1 mg/dL (8.5-10.1); Potassium 4.7 mmol/L (3.5-5.1)
[2021-09-21 05:56] LABS: Basophils % (manual) 0 (0.0-2.0); Blast Cells 0; Metamyelocytes % 0; Myelocytes % 0; Promyelocytes % 0; Reactive Lymphocytes 0
[2021-09-21] MEDS: InsuLIN REG 1unit/0.01ml Soln (100units/ml) SC SCH ×4 (06:40→22:53)
[2021-09-21] MEDS: ACCU-CHEK COMFORT CURVE STRIP VI SCH ×4 (06:41→22:43)
[2021-09-21 08:00] VITALS: BP 118/65
[2021-09-21 08:47] LABS: Band Neutrophils % (manual) 1; Eosinophils % (manual) 1 (0-7); Lymphocytes % (manual) 17 (10.0-50.0); Monocytes % (manual) 10 (0-12)
[2021-09-21 09:00] VITALS: BP 118/65
[2021-09-21] MEDS: APIXABAN 5 MG TAB PO SCH ×2 (09:02→22:42)
[2021-09-21] MEDS: ASPirin 81 mg TAB PO SCH (09:02)
[2021-09-21] MEDS: SEVELAMER 800 MG TAB PO SCH ×3 (09:02→18:07)
[2021-09-21] MEDS: B-COMPLEX W/ C & FOLIC ACID(NEPHROVITE TAB) PO SCH (09:03)
[2021-09-21] MEDS: FAMOTIDINE 20 MG TAB PO SCH (09:03)
[2021-09-21] MEDS: METOPROLOL TARTRATE 25 MG TAB PO SCH ×2 (09:03→22:43)
[2021-09-21 13:00] VITALS: BP 129/70
[2021-09-21 16:57] VITALS: BP 140/75
[2021-09-21 22:25] VITALS: BP 135/69
[2021-09-21] MEDS: ATORVASTATIN 20 MG TAB PO SCH (22:42)
[2021-09-22 05:00] VITALS: BP 129/66
[2021-09-22] MEDS: ACCU-CHEK COMFORT CURVE STRIP VI SCH ×4 (06:21→22:15)
[2021-09-22] MEDS: InsuLIN REG 1unit/0.01ml Soln (100units/ml) SC SCH ×4 (06:35→22:15)
[2021-09-22 06:39] LABS: Potassium 4.5 mmol/L (3.5-5.1)
[2021-09-22 06:42] LABS: BUN/Creatinine Ratio 6.5
[2021-09-22 09:00] VITALS: BP 112/60
[2021-09-22] MEDS: ASPirin 81 mg TAB PO SCH (09:14)
[2021-09-22] MEDS: SEVELAMER 800 MG TAB PO SCH ×4 (09:14→18:05)
[2021-09-22] MEDS: METOPROLOL TARTRATE 25 MG TAB PO SCH ×2 (09:14→22:02)
[2021-09-22] MEDS: APIXABAN 5 MG TAB PO SCH ×2 (09:14→21:59)
[2021-09-22] MEDS: B-COMPLEX W/ C & FOLIC ACID(NEPHROVITE TAB) PO SCH (09:15)
[2021-09-22 13:00] VITALS: BP 134/66
[2021-09-22 17:23] VITALS: BP 134/66
[2021-09-22 20:15] VITALS: BP 134/69
[2021-09-22] MEDS: ATORVASTATIN 20 MG TAB PO SCH (21:59)
[2021-09-22 22:00] VITALS: BP 134/69
[2021-09-23 05:00] VITALS: BP 121/67
[2021-09-23] MEDS: ACCU-CHEK COMFORT CURVE STRIP VI SCH ×4 (06:01→22:07)
[2021-09-23] MEDS: InsuLIN REG 1unit/0.01ml Soln (100units/ml) SC SCH ×4 (06:06→22:00)
[2021-09-23 09:00] VITALS: BP 138/73
[2021-09-23] MEDS: SEVELAMER 800 MG TAB PO SCH ×3 (09:21→17:46)
[2021-09-23] MEDS: ASPirin 81 mg TAB PO SCH (09:22)
[2021-09-23] MEDS: APIXABAN 5 MG TAB PO SCH ×2 (09:22→22:10)
[2021-09-23] MEDS: METOPROLOL TARTRATE 25 MG TAB PO SCH ×2 (09:23→22:11)
[2021-09-23] MEDS: B-COMPLEX W/ C & FOLIC ACID(NEPHROVITE TAB) PO SCH (09:23)
[2021-09-23] MEDS: FAMOTIDINE 20 MG TAB PO SCH (09:23)
[2021-09-23 13:00] VITALS: BP 137/69
[2021-09-23 17:00] VITALS: BP 140/75
[2021-09-23] MEDS: ATORVASTATIN 20 MG TAB PO SCH (22:10)
[2021-09-23 22:22] VITALS: BP 169/84
[2021-09-24 05:00] VITALS: BP 125/86
[2021-09-24] MEDS: ACCU-CHEK COMFORT CURVE STRIP VI SCH ×4 (06:06→22:35)
[2021-09-24] MEDS: InsuLIN REG 1unit/0.01ml Soln (100units/ml) SC SCH ×4 (06:08→22:38)
[2021-09-24] MEDS: SEVELAMER 800 MG TAB PO SCH ×3 (08:30→17:37)
[2021-09-24 09:00] VITALS: BP 190/88
[2021-09-24] MEDS: ASPirin 81 mg TAB PO SCH (10:08)
[2021-09-24] MEDS: B-COMPLEX W/ C & FOLIC ACID(NEPHROVITE TAB) PO SCH (10:09)
[2021-09-24] MEDS: APIXABAN 5 MG TAB PO SCH ×2 (10:09→22:42)
[2021-09-24] MEDS: METOPROLOL TARTRATE 25 MG TAB PO SCH ×2 (10:09→22:42)
[2021-09-24] MEDS ORDERED: SODIUM CHL 0.9% 1000 ML BAG XX ONE (11:00)
[2021-09-24 11:44] LABS: Hematocrit 21.9 % (41.0-53.0); Hemoglobin 7.5 g/dL (13.5-17.5)
[2021-09-24 13:00] VITALS: BP 138/72
[2021-09-24 17:00] VITALS: BP 140/68
[2021-09-24] MEDS ORDERED: EPOETIN ALFA-EPBX 4,000 UNIT/ML VIAL SC ONE (21:00)
[2021-09-24 22:00] VITALS: BP 138/72
[2021-09-24] MEDS: ATORVASTATIN 20 MG TAB PO SCH (22:42)
[2021-09-25] MEDS: InsuLIN REG 1unit/0.01ml Soln (100units/ml) SC SCH ×4 (07:00→22:00)
[2021-09-25] MEDS: ACCU-CHEK COMFORT CURVE STRIP VI SCH ×4 (07:10→22:00)
[2021-09-25 07:55] LABS: Potassium 4.4 mmol/L (3.5-5.1)
[2021-09-25 08:07] LABS: BUN/Creatinine Ratio 7.1; Calcium 8.2 mg/dL (8.5-10.1)
[2021-09-25 09:00] VITALS: BP 144/65
[2021-09-25] MEDS: SEVELAMER 800 MG TAB PO SCH ×3 (10:20→17:34)
[2021-09-25] MEDS: APIXABAN 5 MG TAB PO SCH ×2 (10:21→22:00)
[2021-09-25] MEDS: ASPirin 81 mg TAB PO SCH (10:21)
[2021-09-25] MEDS: B-COMPLEX W/ C & FOLIC ACID(NEPHROVITE TAB) PO SCH (10:22)
[2021-09-25] MEDS: METOPROLOL TARTRATE 25 MG TAB PO SCH ×2 (10:22→22:00)
[2021-09-25] MEDS: FAMOTIDINE 20 MG TAB PO SCH (10:24)
[2021-09-25 14:39] VITALS: BP 131/70
[2021-09-25 16:28] VITALS: BP 131/72
[2021-09-25 22:00] VITALS: BP 140/67
[2021-09-25] MEDS: ATORVASTATIN 20 MG TAB PO SCH (22:00)
[2021-09-26 05:00] VITALS: BP 139/71
[2021-09-26] MEDS: InsuLIN REG 1unit/0.01ml Soln (100units/ml) SC SCH ×4 (06:22→22:00)
[2021-09-26] MEDS: ACCU-CHEK COMFORT CURVE STRIP VI SCH ×4 (06:22→22:05)
[2021-09-26 07:46] LABS: BUN/Creatinine Ratio 8.4; Calcium 8.2 mg/dL (8.5-10.1); Potassium 4.9 mmol/L (3.5-5.1)
[2021-09-26] MEDS: SEVELAMER 800 MG TAB PO SCH ×3 (08:00→18:00)
[2021-09-26 09:00] VITALS: BP 137/70
[2021-09-26] MEDS: ASPirin 81 mg TAB PO SCH (10:16)
[2021-09-26] MEDS: APIXABAN 5 MG TAB PO SCH ×2 (10:17→22:00)
[2021-09-26] MEDS: METOPROLOL TARTRATE 25 MG TAB PO SCH ×2 (10:19→22:01)
[2021-09-26] MEDS: B-COMPLEX W/ C & FOLIC ACID(NEPHROVITE TAB) PO SCH (10:20)
[2021-09-26 11:48] LABS: Magnesium 2.2 mg/dL (1.6-2.6); Phosphorus 3.5 mg/dL (2.5-4.90)
[2021-09-26 13:11] VITALS: BP 138/86
[2021-09-26 17:25] VITALS: BP 137/74
[2021-09-26 22:00] VITALS: BP 142/72
[2021-09-26] MEDS: ATORVASTATIN 20 MG TAB PO SCH (22:00)
[2021-09-27 05:00] VITALS: BP 117/60
[2021-09-27] MEDS: ACCU-CHEK COMFORT CURVE STRIP VI SCH ×4 (06:41→21:57)
[2021-09-27] MEDS: InsuLIN REG 1unit/0.01ml Soln (100units/ml) SC SCH ×4 (06:42→21:58)
[2021-09-27 07:18] LABS: BUN/Creatinine Ratio 8.4; Calcium 8.1 mg/dL (8.5-10.1); Potassium 4.9 mmol/L (3.5-5.1)
[2021-09-27] MEDS: B-COMPLEX W/ C & FOLIC ACID(NEPHROVITE TAB) PO SCH (09:05)
[2021-09-27] MEDS: ASPirin 81 mg TAB PO SCH (09:05)
[2021-09-27] MEDS: APIXABAN 5 MG TAB PO SCH ×2 (09:05→21:49)
[2021-09-27] MEDS: METOPROLOL TARTRATE 25 MG TAB PO SCH ×2 (09:05→21:51)
[2021-09-27] MEDS: FAMOTIDINE 20 MG TAB PO SCH (09:05)
[2021-09-27] MEDS: SEVELAMER 800 MG TAB PO SCH ×3 (09:06→16:50)
[2021-09-27 09:08] VITALS: BP 137/81
[2021-09-27 10:28] LABS: Basophils # (auto) 0.1 10 ^3/uL (0-0.2); Eosinophils # (auto) 0.1 10 ^3/uL (0-0.8); Hemoglobin 7.1 g/dL (13.5-17.5); Lymphocytes # (auto) 1.4 10 ^3/uL (0.4-5.4); Monocytes # (auto) 0.7 10 ^3/uL (0-1.3); Neutrophils # (auto) 4.5 10 ^3/uL (1.6-8.6); White Blood Cell 6.8 10^3/uL (4.4-10.8)
[2021-09-27 10:31] LABS: Basophils % (auto) 1.1 % (0.0-2.0); Eosinophils % (auto) 1.4 % (0.0-7.0); Hematocrit 22.3 % (41.0-53.0); Lymphocytes % (auto) 20.8 % (10.0-50.0); Mean Corpuscular Hemoglobin 31.6 pg (28.0-32.0); Mean Corpuscular Hgb Conc. 32.1 g/dL (32.0-36.0); Mean Corpuscular Volume 98.6 fL (80.0-100.0); Monocytes % (auto) 9.7 % (0.0-12.0); Nucleated Red Blood Cells % 0.1 %; Red Blood Cells 2.26 10^6/uL (4.5-5.90); Red Cell Distribution Width 19.2 % (11.8-14.3)
[2021-09-27 13:00] VITALS: BP 118/58
[2021-09-27] MEDS ORDERED: TUBERCULIN PPD 5 UNIT/0.1 ML ID ONE (13:00)
[2021-09-27 17:51] VITALS: BP 121/74
[2021-09-27] MEDS ORDERED: EPOETIN ALFA-EPBX 4,000 UNIT/ML VIAL SC ONE (21:00)
[2021-09-27] MEDS: ATORVASTATIN 20 MG TAB PO SCH (21:49)
[2021-09-27 22:29] VITALS: BP 148/73
[2021-09-28 05:00] VITALS: BP 132/81
[2021-09-28] MEDS: ACCU-CHEK COMFORT CURVE STRIP VI SCH ×4 (06:31→21:59)
[2021-09-28] MEDS: InsuLIN REG 1unit/0.01ml Soln (100units/ml) SC SCH ×4 (06:32→22:00)
[2021-09-28 08:00] VITALS: BP 133/70
[2021-09-28] MEDS: ASPirin 81 mg TAB PO SCH (09:18)
[2021-09-28] MEDS: SEVELAMER 800 MG TAB PO SCH ×3 (09:18→17:04)
[2021-09-28] MEDS: METOPROLOL TARTRATE 25 MG TAB PO SCH ×2 (09:18→22:01)
[2021-09-28] MEDS: B-COMPLEX W/ C & FOLIC ACID(NEPHROVITE TAB) PO SCH (09:18)
[2021-09-28] MEDS: APIXABAN 5 MG TAB PO SCH ×2 (09:18→22:01)
[2021-09-28 13:00] VITALS: BP 136/57
[2021-09-28 17:00] VITALS: BP 127/56
[2021-09-28] MEDS: ATORVASTATIN 20 MG TAB PO SCH (22:00)
[2021-09-28 22:22] VITALS: BP 110/60
[2021-09-29 05:11] VITALS: BP 140/70
[2021-09-29] MEDS: InsuLIN REG 1unit/0.01ml Soln (100units/ml) SC SCH ×4 (06:12→21:13)
[2021-09-29] MEDS: ACCU-CHEK COMFORT CURVE STRIP VI SCH ×4 (06:13→21:09)
[2021-09-29] MEDS: ASPirin 81 mg TAB PO SCH (08:59)
[2021-09-29] MEDS: APIXABAN 5 MG TAB PO SCH (08:59)
[2021-09-29] MEDS: FAMOTIDINE 20 MG TAB PO SCH (08:59)
[2021-09-29] MEDS: SEVELAMER 800 MG TAB PO SCH ×3 (08:59→17:19)
[2021-09-29] MEDS: B-COMPLEX W/ C & FOLIC ACID(NEPHROVITE TAB) PO SCH (08:59)
[2021-09-29 09:00] VITALS: BP 133/71
[2021-09-29] MEDS: METOPROLOL TARTRATE 25 MG TAB PO SCH ×2 (09:03→21:09)
[2021-09-29 13:00] VITALS: BP 134/69
[2021-09-29 16:17] LABS: Hematocrit 16.6 % (41.0-53.0)
[2021-09-29 16:20] LABS: Hemoglobin 5.7 g/dL (13.5-17.5)
[2021-09-29 17:00] VITALS: BP 123/61
[2021-09-29] MEDS ORDERED: EPOETIN ALFA-EPBX 4,000 UNIT/ML VIAL SC ONE (21:00)
[2021-09-29] MEDS: ATORVASTATIN 20 MG TAB PO SCH (21:08)
[2021-09-29 22:00] VITALS: BP 129/59
[2021-09-30] VITALS (12 sets, daily range): BP systolic 114–154; BP diastolic 46–75
[2021-09-30] MEDS: ACCU-CHEK COMFORT CURVE STRIP VI SCH ×4 (05:06→21:31)
[2021-09-30] MEDS: InsuLIN REG 1unit/0.01ml Soln (100units/ml) SC SCH ×4 (05:08→21:32)
[2021-09-30] MEDS: SEVELAMER 800 MG TAB PO SCH ×4 (08:00→17:04)
[2021-09-30] MEDS: METOPROLOL TARTRATE 25 MG TAB PO SCH ×2 (09:27→21:33)
[2021-09-30] MEDS: B-COMPLEX W/ C & FOLIC ACID(NEPHROVITE TAB) PO SCH (09:27)
[2021-09-30] MEDS: ASPirin 81 mg TAB PO SCH (09:28)
[2021-09-30 10:05] LABS: Eosinophils # (auto) 0.1 10 ^3/uL (0-0.8); Lymphocytes # (auto) 0.9 10 ^3/uL (0.4-5.4); Neutrophils # (auto) 3.9 10 ^3/uL (1.6-8.6)
[2021-09-30 10:07] LABS: Basophils # (auto) 0.1 10 ^3/uL (0-0.2); Eosinophils % (auto) 1.2 % (0.0-7.0); Hematocrit 19.6 % (41.0-53.0); Lymphocytes % (auto) 16.6 % (10.0-50.0); Mean Corpuscular Hemoglobin 31.7 pg (28.0-32.0); Mean Corpuscular Hgb Conc. 34.4 g/dL (32.0-36.0); Monocytes # (auto) 0.6 10 ^3/uL (0-1.3); Monocytes % (auto) 11.2 % (0.0-12.0); Red Blood Cells 2.13 10^6/uL (4.5-5.90); Red Cell Distribution Width 18.7 % (11.8-14.3); White Blood Cell 5.5 10^3/uL (4.4-10.8)
[2021-09-30 10:12] LABS: Hemoglobin 6.8 g/dL (13.5-17.5)
[2021-09-30 14:04] LABS: INR 1.34 (0.9-1.15)
[2021-09-30] MEDS ORDERED: SODIUM FERR GLUC 62.5MG/5ML 125 MG in SODIUM CHL 0.9% 100 ML IV ONE (14:15)
[2021-09-30 14:50] LABS: Hematocrit 19.3 % (41.0-53.0)
[2021-09-30 14:57] LABS: Hemoglobin 6.7 g/dL (13.5-17.5)
[2021-09-30] MEDS: ATORVASTATIN 20 MG TAB PO SCH (21:31)
[2021-09-30] MEDS: PANTOPRAZOLE 40 MG TAB PO SCH (21:31)
[2021-10-01] VITALS (9 sets, daily range): BP systolic 122–146; BP diastolic 52–71
[2021-10-01 06:05] LABS: Hematocrit 18.5 % (41.0-53.0)
[2021-10-01 06:16] LABS: Hemoglobin 6.4 g/dL (13.5-17.5)
[2021-10-01] MEDS: ACCU-CHEK COMFORT CURVE STRIP VI SCH ×4 (06:19→21:23)
[2021-10-01] MEDS: InsuLIN REG 1unit/0.01ml Soln (100units/ml) SC SCH ×4 (06:20→21:23)
[2021-10-01] MEDS: PANTOPRAZOLE 40 MG TAB PO SCH (09:09)
[2021-10-01] MEDS: B-COMPLEX W/ C & FOLIC ACID(NEPHROVITE TAB) PO SCH (09:09)
[2021-10-01] MEDS: SEVELAMER 800 MG TAB PO SCH ×3 (09:09→18:52)
[2021-10-01] MEDS: METOPROLOL TARTRATE 25 MG TAB PO SCH ×2 (09:10→21:51)
[2021-10-01] MEDS: SODIUM FERR GLUC 62.5MG/5ML 125 MG in SODIUM CHL 0.9% 100 ML IV SCH (12:32)
[2021-10-01 14:47] LABS: Hematocrit 18.8 % (41.0-53.0)
[2021-10-01 15:22] LABS: Hemoglobin 6.4 g/dL (13.5-17.5)
[2021-10-01] MEDS: PANTOPRAZOLE 40 MG/10 ML VIAL INJ IV SCH (21:51)
[2021-10-01] MEDS: ATORVASTATIN 20 MG TAB PO SCH (21:51)
[2021-10-01 22:22] LABS: Hematocrit 20.5 % (41.0-53.0)
[2021-10-01 22:43] LABS: Hemoglobin 6.9 g/dL (13.5-17.5)
[2021-10-02] VITALS (10 sets, daily range): BP systolic 128–158; BP diastolic 65–84
[2021-10-02 00:51] LABS: Hematocrit 21.3 % (41.0-53.0); Hemoglobin 7.1 g/dL (13.5-17.5)
[2021-10-02 05:18] LABS: Hematocrit 21.2 % (41.0-53.0)
[2021-10-02] MEDS: ACCU-CHEK COMFORT CURVE STRIP VI SCH ×4 (06:08→22:06)
[2021-10-02] MEDS: InsuLIN REG 1unit/0.01ml Soln (100units/ml) SC SCH ×4 (06:08→21:56)
[2021-10-02 06:45] LABS: INR 1.27 (0.9-1.15); Partial Thromboplastin Time 32.2 sec (23.6-33.0)
[2021-10-02 06:48] LABS: Hemoglobin 7.2 g/dL (13.5-17.5)
[2021-10-02 06:51] LABS: Calcium 8.4 mg/dL (8.5-10.1); Potassium 4.2 mmol/L (3.5-5.1)
[2021-10-02] MEDS ORDERED: GOLYTELY 4L KIT PO ONE (09:00)
[2021-10-02] MEDS: METOPROLOL TARTRATE 25 MG TAB PO SCH ×2 (09:25→22:05)
[2021-10-02] MEDS: SEVELAMER 800 MG TAB PO SCH ×3 (09:26→17:01)
[2021-10-02] MEDS: PANTOPRAZOLE 40 MG/10 ML VIAL INJ IV SCH ×2 (09:26→22:05)
[2021-10-02] MEDS: B-COMPLEX W/ C & FOLIC ACID(NEPHROVITE TAB) PO SCH (09:27)
[2021-10-02] MEDS: SODIUM FERR GLUC 62.5MG/5ML 125 MG in SODIUM CHL 0.9% 100 ML IV SCH (11:23)
[2021-10-02] MEDS: ATORVASTATIN 20 MG TAB PO SCH (22:04)
[2021-10-03 00:32] VITALS: BP 132/74
[2021-10-03] MEDS: ACCU-CHEK COMFORT CURVE STRIP VI SCH ×4 (06:19→21:35)
[2021-10-03] MEDS: InsuLIN REG 1unit/0.01ml Soln (100units/ml) SC SCH ×4 (06:19→21:35)
[2021-10-03 07:26] LABS: Basophils # (auto) 0.1 10 ^3/uL (0-0.2); Basophils % (auto) 1.1 % (0.0-2.0); Eosinophils # (auto) 0.1 10 ^3/uL (0-0.8); Eosinophils % (auto) 1.2 % (0.0-7.0); Hematocrit 25.8 % (41.0-53.0); Hemoglobin 8.8 g/dL (13.5-17.5); Lymphocytes # (auto) 0.8 10 ^3/uL (0.4-5.4); Lymphocytes % (auto) 11.9 % (10.0-50.0); Mean Corpuscular Hemoglobin 31.6 pg (28.0-32.0); Mean Corpuscular Hgb Conc. 34.1 g/dL (32.0-36.0); Mean Corpuscular Volume 92.6 fL (80.0-100.0); Monocytes # (auto) 0.6 10 ^3/uL (0-1.3); Monocytes % (auto) 9.5 % (0.0-12.0); Neutrophils # (auto) 5.1 10 ^3/uL (1.6-8.6); Neutrophils % (auto) 76.3 % (37.0-80.0); Nucleated Red Blood Cells % 0.1 %; Red Blood Cells 2.78 10^6/uL (4.5-5.90); Red Cell Distribution Width 18.4 % (11.8-14.3); White Blood Cell 6.6 10^3/uL (4.4-10.8)
[2021-10-03 07:40] LABS: Calcium 8.3 mg/dL (8.5-10.1); Potassium 3.7 mmol/L (3.5-5.1)
[2021-10-03 07:44] LABS: BUN/Creatinine Ratio 9.4
[2021-10-03 08:00] VITALS: BP 135/69
[2021-10-03] MEDS: SEVELAMER 800 MG TAB PO SCH ×3 (08:00→17:37)
[2021-10-03 09:00] VITALS: BP 135/69
[2021-10-03] MEDS ORDERED: LIDOCAINE VISCOUS 2% 15ML UD ONE (09:05)
[2021-10-03] MEDS ORDERED: diphenhdrAMINE HCL 50 MG/1 ML VL ONE (09:06)
[2021-10-03] MEDS: MIDAZOLAM HCL 5 MG/ML-1ML VIAL ONE ×2 (09:59→10:02)
[2021-10-03] MEDS: fentaNYL CITRATE 100 MCG/2 ML VL ONE ×2 (09:59→10:02)
[2021-10-03] MEDS: METOPROLOL TARTRATE 25 MG TAB PO SCH ×2 (10:00→21:42)
[2021-10-03] MEDS: B-COMPLEX W/ C & FOLIC ACID(NEPHROVITE TAB) PO SCH (10:00)
[2021-10-03] MEDS ORDERED: GOLYTELY 4L KIT PO ONE (10:30)
[2021-10-03] MEDS: PANTOPRAZOLE 40 MG/10 ML VIAL INJ IV SCH ×2 (14:26→21:41)
[2021-10-03] MEDS: SODIUM FERR GLUC 62.5MG/5ML 125 MG in SODIUM CHL 0.9% 100 ML IV SCH (14:27)
[2021-10-03 17:04] VITALS: BP 156/84
[2021-10-03] MEDS: ONDANSETRON HCL 4 MG/2 ML VIAL IV PRN (17:58)
[2021-10-03] MEDS ORDERED: FUROSEMIDE 40 MG TAB PO ONE (20:00)
[2021-10-03] MEDS: ATORVASTATIN 20 MG TAB PO SCH (21:42)
[2021-10-03 22:00] VITALS: BP 142/75
[2021-10-04 05:00] VITALS: BP 140/80
[2021-10-04] MEDS: InsuLIN REG 1unit/0.01ml Soln (100units/ml) SC SCH ×3 (06:09→16:59)
[2021-10-04] MEDS: ACCU-CHEK COMFORT CURVE STRIP VI SCH ×3 (06:09→16:59)
[2021-10-04] MEDS: SEVELAMER 800 MG TAB PO SCH ×3 (08:00→16:59)
[2021-10-04 08:37] LABS: Basophils # (auto) 0.1 10 ^3/uL (0-0.2); Basophils % (auto) 1.2 % (0.0-2.0); Eosinophils # (auto) 0.1 10 ^3/uL (0-0.8); Eosinophils % (auto) 1.3 % (0.0-7.0); Hematocrit 27.4 % (41.0-53.0); Hemoglobin 9.1 g/dL (13.5-17.5); Lymphocytes # (auto) 0.9 10 ^3/uL (0.4-5.4); Lymphocytes % (auto) 14.5 % (10.0-50.0); Mean Corpuscular Hemoglobin 31.4 pg (28.0-32.0); Mean Corpuscular Hgb Conc. 33.3 g/dL (32.0-36.0); Mean Corpuscular Volume 94.3 fL (80.0-100.0); Monocytes # (auto) 0.7 10 ^3/uL (0-1.3); Monocytes % (auto) 12.6 % (0.0-12.0); Neutrophils # (auto) 4.2 10 ^3/uL (1.6-8.6); Neutrophils % (auto) 70.4 % (37.0-80.0); Nucleated Red Blood Cells % 0.1 %; White Blood Cell 5.9 10^3/uL (4.4-10.8)
[2021-10-04 09:00] VITALS: BP 140/82
[2021-10-04] MEDS: METOPROLOL TARTRATE 25 MG TAB PO SCH (10:00)
[2021-10-04] MEDS ORDERED: FUROSEMIDE 40 MG TAB PO SCH (10:00)
[2021-10-04] MEDS: PANTOPRAZOLE 40 MG/10 ML VIAL INJ IV SCH (10:14)
[2021-10-04] MEDS ORDERED: MIDAZOLAM HCL 5 MG/ML-1ML VIAL ONE (11:02)
[2021-10-04] MEDS ORDERED: fentaNYL CITRATE 100 MCG/2 ML VL ONE (11:03)
[2021-10-04] MEDS ORDERED: diphenhdrAMINE HCL 50 MG/1 ML VL ONE (11:03)
[2021-10-04] MEDS: B-COMPLEX W/ C & FOLIC ACID(NEPHROVITE TAB) PO SCH (11:46)
[2021-10-04] MEDS: SODIUM FERR GLUC 62.5MG/5ML 125 MG in SODIUM CHL 0.9% 100 ML IV SCH (12:45)
[2021-10-04 13:00] VITALS: BP 148/80
[2021-10-04] MEDS ORDERED: APIX2.5T PO (13:50)
[2021-10-04] MEDS ORDERED: FER325T PO (13:50)
[2021-10-04] MEDS ORDERED: SEVE800T PO (13:50)
[2021-10-04] MEDS ORDERED: MET25T PO (13:52)
[2021-10-04] MEDS ORDERED: PANT40TA2 PO (13:52)
[2021-10-04] MEDS ORDERED: B CO1TAB7 PO (13:53)
[2021-10-04 17:00] VITALS: BP 151/91
== END 2021-10-04 20:23 | disposition home health service (06) | DRG 640 ==
LOC: ER 16:19 → TELE 22:36 → TELE-CENTR 23:34
PROVIDERS: ADMIT Nurse Practitioner Family; ATTEND Internal Medicine
PROC: 5A1D70Z Performance of Urinary Filtration, Intermittent, Less than 6 Hours Per Day (ICD-10-PCS; principal; 2021-09-07)
PROC: 5A1D70Z Performance of Urinary Filtration, Intermittent, Less than 6 Hours Per Day (ICD-10-PCS; 2021-09-09)
PROC: 0JH63XZ Insertion of Tunneled Vascular Access Device into Chest Subcutaneous Tissue and Fascia, Percutaneous Approach (ICD-10-PCS; 2021-09-11)
PROC: 02H633Z Insertion of Infusion Device into Right Atrium, Percutaneous Approach (ICD-10-PCS; 2021-09-11)
PROC: B548ZZA Ultrasonography of Superior Vena Cava, Guidance (ICD-10-PCS; 2021-09-11)
PROC: B5181ZA Fluoroscopy of Superior Vena Cava using Low Osmolar Contrast, Guidance (ICD-10-PCS; 2021-09-11)
PROC: 5A1D70Z Performance of Urinary Filtration, Intermittent, Less than 6 Hours Per Day (ICD-10-PCS; 2021-09-13)
PROC: 5A1D70Z Performance of Urinary Filtration, Intermittent, Less than 6 Hours Per Day (ICD-10-PCS; 2021-09-15)
PROC: 5A1D70Z Performance of Urinary Filtration, Intermittent, Less than 6 Hours Per Day (ICD-10-PCS; 2021-09-18)
PROC: 5A1D70Z Performance of Urinary Filtration, Intermittent, Less than 6 Hours Per Day (ICD-10-PCS; 2021-09-20)
PROC: 5A1D70Z Performance of Urinary Filtration, Intermittent, Less than 6 Hours Per Day (ICD-10-PCS; 2021-09-22)
PROC: 5A1D70Z Performance of Urinary Filtration, Intermittent, Less than 6 Hours Per Day (ICD-10-PCS; 2021-09-24)
PROC: 5A1D70Z Performance of Urinary Filtration, Intermittent, Less than 6 Hours Per Day (ICD-10-PCS; 2021-09-27)
PROC: 5A1D70Z Performance of Urinary Filtration, Intermittent, Less than 6 Hours Per Day (ICD-10-PCS; 2021-09-29)
PROC: 30233N1 Transfusion of Nonautologous Red Blood Cells into Peripheral Vein, Percutaneous Approach (ICD-10-PCS; 2021-09-30)
PROC: 5A1D70Z Performance of Urinary Filtration, Intermittent, Less than 6 Hours Per Day (ICD-10-PCS; 2021-10-03)
PROC: 0DJ08ZZ Inspection of Upper Intestinal Tract, Via Natural or Artificial Opening Endoscopic (ICD-10-PCS; 2021-10-03)
PROC: 0DBL8ZZ Excision of Transverse Colon, Via Natural or Artificial Opening Endoscopic (ICD-10-PCS; 2021-10-04)
DX: E87.5 Hyperkalemia (principal); N18.6 End stage renal disease; K29.71 Gastritis, unspecified, with bleeding; K29.81 Duodenitis with bleeding; L03.119 Cellulitis of unspecified part of limb; R18.8 Other ascites; N17.9 Acute kidney failure, unspecified; D68.59 Other primary thrombophilia; I12.0 Hypertensive chronic kidney disease with stage 5 chronic kidney disease or end stage renal disease; N39.0 Urinary tract infection, site not specified; L02.619 Cutaneous abscess of unspecified foot; T82.510A Breakdown (mechanical) of surgically created arteriovenous fistula, initial encounter; E11.65 Type 2 diabetes mellitus with hyperglycemia; E77.8 Other disorders of glycoprotein metabolism; E78.5 Hyperlipidemia, unspecified; K80.20 Calculus of gallbladder without cholecystitis without obstruction; M19.90 Unspecified osteoarthritis, unspecified site; E11.22 Type 2 diabetes mellitus with diabetic chronic kidney disease; I48.91 Unspecified atrial fibrillation; L97.529 Non-pressure chronic ulcer of other part of left foot with unspecified severity; N28.1 Cyst of kidney, acquired; N40.0 Benign prostatic hyperplasia without lower urinary tract symptoms; I48.0 Paroxysmal atrial fibrillation; K44.9 Diaphragmatic hernia without obstruction or gangrene; K63.5 Polyp of colon; E11.51 Type 2 diabetes mellitus with diabetic peripheral angiopathy without gangrene; E11.21 Type 2 diabetes mellitus with diabetic nephropathy; K64.8 Other hemorrhoids; D63.1 Anemia in chronic kidney disease; E11.621 Type 2 diabetes mellitus with foot ulcer; Z99.2 Dependence on renal dialysis; Z91.14 Patient's other noncompliance with medication regimen; Z83.3 Family history of diabetes mellitus; Z86.711 Personal history of pulmonary embolism; Z87.891 Personal history of nicotine dependence; Y83.8 Other surgical procedures as the cause of abnormal reaction of the patient, or of later complication, without mention of misadventure at the time of the procedure; Y92.238 Other place in hospital as the place of occurrence of the external cause
CPT/HCPCS: 36415; 36561; 43235; 45384; 70450; 71045; 73700; 74176; 76705; 76942; 80048; 80053; 80061; 80074; 81001; 82270; 82306; 82728; 82962; 83036; 83540; 83550; 83605; 83735; 83880; 83970; 84100; 84132; 84484; 85007; 85014; 85018; 85025; 85027; 85610; 85730; 86706; 86850; 86900; 86901; 86920; 87040; 87081; 87426; 90935; 93005; 93306; 94640; 96365; 96367; 96375; 97163; 99152; C9113; G0378; J0696; J1642; J1815; J2001; J2250; J2405; J2543; J3490